=== PATIENT | female | born 1975 | race Hispanic/Latino ===

== ENCOUNTER 2021-04-25 12:54 | Emergency (ER) | payer OTHER ==
[2021-04-25] MEDS ORDERED: Acetaminophen 500 MG TAB ONE (15:28)
[2021-04-25] MEDS ORDERED: Ibuprofen 200 MG TAB ONE (15:28)
== END 2021-04-25 15:34 | disposition home or self-care (01) ==
LOC: ERS 12:54
DX: S09.90XA Unspecified injury of head, initial encounter (principal); X58.XXXA Exposure to other specified factors, initial encounter
CPT/HCPCS: 99283